=== PATIENT | male | born 1965 | race Caucasian/White ===

== ENCOUNTER 2020-02-24 08:03 | Outpatient (CLI) | payer OTHER, SELFPAY ==
--- NOTE | ~2020-02-24 | US_ITS ---
EXAMINATION: US art doppler w press LE BI DATE: 02/24/2020 08:44 INDICATION: Claudication. TECHNIQUE: Segmental pressures and plethysmographic and Doppler waveforms of the brachial and lower e xtremity arteries were obtained. COMPARISON: None. FINDINGS: Right and left brachial artery pressures of 151 mm Hg and 163 mm Hg, respectively, are concordant (no rmal difference <= 30 mmHg). The right high-thigh pressure index is 1.12 (normal > 1.2). The right ankle-brachial index (SAMUEL) is 1 .10 (normal >= 0.9-1.0). The right great toe-brachial index (TBI) is 1.24 (normal >= 0.65). Arterial Doppler waveforms are biphasic in common femoral artery, triphasic in superficial femoral artery, and biphasic in popliteal artery and at the ankle. The left high-thigh pressure index is 0.91. The left SAMUEL is 0.78. The left TBI is 0.73. The left lowe r extremity segmental pressure gradients are normal. Arterial Doppler waveforms are biphasic from com mon femoral artery to the ankle. IMPRESSION: 1. Mildly decreased left SAMUEL, consistent with left-sided arterial occlusive disease, most likely in t he iliofemoral distribution. Reviewed, dictated and finalized at location A. IMPRESSION: 1. Mildly decreased left SAMUEL, consistent with left-sided arterial occlusive dis ease, most likely in the iliofemoral distribution.
== END 2020-02-24 08:04 | disposition home or self-care (01) ==
LOC: ANHIMG 08:10
PROVIDERS: PCP Family Medicine; Visit Provider Family Medicine
DX: L97.501 Non-pressure chronic ulcer of other part of unspecified foot limited to breakdown of skin (principal); E08.621 Diabetes mellitus due to underlying condition with foot ulcer; I73.9 Peripheral vascular disease, unspecified
CPT/HCPCS: 93923

== ENCOUNTER 2023-01-24 13:41 | Inpatient (IN) | payer SELFPAY ==
--- NOTE | ~2023-01-24 | XR_ITS ---
EXAMINATION: XR toe 2nd RT min 2V INDICATION: Necrotic toe, second digit swelling TECHNIQUE: Four views of the right second toe are obtained. COMPARISON: None available FINDINGS: No fracture, dislocation, or subluxation. There is atrophy of the distal soft tissues of th e right second toe beyond the mid neck of the middle phalanx. No fracture is identified. There is mil d osteoarthritis of the interphalangeal joints. IMPRESSION: 1. Soft tissue atrophy of the distal second toe. Reviewed, dictated and finalized at location F.
--- NOTE | ~2023-01-24 | US_ITS ---
EXAMINATION: US arterial duplex LE RT DATE: 01/24/2023 19:41 INDICATION: Right second toe necrosis TECHNIQUE: Multiple grayscale and Doppler ultrasound images of the lower limb arteries were obtained. COMPARISON: None FINDINGS: On the right, peak systolic velocity is 100 cm/s in common femoral artery, 26 cm/s in the f emoral artery, 84 cm/s in superficial femoral artery, 59 cm/s in popliteal artery, 54 cm/s in the proximal anterior tibial artery and 29 cm/s in the distal anterior t ibial artery, 72 cm/s in posterior tibial artery, and 72 cm/s dorsalis pedis. IMPRESSION: 1. Increased velocity gradient between right superficial femoral artery and distal anterior tibial ar braulio, consistent with at least moderate stenosis. Reviewed, dictated and finalized at location F. IMPRESSION: 1. Increased velocity gradient between right superficial femoral artery and dis marcello anterior tibial artery, consistent with at least moderate stenosis.
[2023-01-24 13:49] VITALS: BP 194/98; PULSE 91; RESP 18; TEMP 36.6; O2SAT 100
[2023-01-24 16:24] VITALS: BP 202/98; PULSE 82; RESP 20; O2SAT 100
--- NOTE | 2023-01-24 16:43 | ED.LOWEXIN ---
HPI - Extremity Injury (Lower) General Chief Complaint: Extremity Injury, Lower Stated Complaint: wound on toe Time Seen by Provider: 01/24/23 16:19 History of Present Illness HPI Narrative: 57-year-old male presents to the emergency room this evening for a necrotic second toe on his right foot. He says that he accidentally cut his toe 2 weeks ago when he was trying to remove the callus from his foot. He tried to manage it on his own with dressings and finally went to see his child psychometrist today. The child psychometrist told him that his toe was gangrenous and he was going to need to come to the emergency room. The patient has not had any fever or chills. He does not have any sensation in the toe so he does not have any pain. Related Data Allergies Allergy/AdvReac Type Severity Reaction Status Date / Time No Known Drug Allergies Allergy Unknown Other Verified 01/24/23 16:24 Review of Systems Review of Systems: CONSTITUTIONAL: Denies fever, chills, or sweats. EYES: Denies visual changes, redness, or discharge. ENT: Denies rhinorrhea, congestion, sore throat, or otalgia. CARDIOVASCULAR: Denies chest pain, palpitations, or edema. RESPIRATORY: Denies cough or dyspnea. GASTROINTESTINAL: Denies abdominal pain, nausea, vomiting, or diarrhea. GENITOURINARY: Denies dysuria or hematuria. SKIN: Denies rash or itching. MUSCULOSKELETAL: As per HPI NEUROLOGIC: Denies headache, numbness, dizziness, or weakness. PSYCHIATRIC: Denies anxiety or depression. [facility] Past Medical History Medical History Benign hypertension Continuous tobacco abuse Diabetic neuropathy Elevated PSA History of CVA (cerebrovascular accident) Mixed hyperlipidemia Nicotine dependence, unspecified, uncomplicated Family History Family History Mother Family history of rheumatoid arthritis Father Carcinoma of colon Social History Social History Social History: Single Smoking packs per day: 1 Smoking cigarettes per day: 20.0 Years smoked: 36 Smoking pack-years: 36.00 Smoking status: Current every day smoker Tobacco type: cigarettes Second hand tobacco smoke exposure: Yes Alcohol intake: current Alcohol use details: once or twice a month Substance use: never Substance use type: does not use Living arrangements: alone Occupation/Education: occupation Gender identity (if verbalized by the patient): Male Sexual Orientation (if Verbalized by the Patient): Straight or Heterosexual Exam Narrative: GENERAL: Well-appearing, well-nourished, and in no acute distress. HEAD: Normocephalic, atraumatic. NECK: Supple. No adenopathy or masses. No carotid bruits or JVD CHEST: Clear to auscultation. No respiratory distress. No wheezes rales or rhonchi HEART: Regular rate and rhythm. No murmur heard. Normal peripheral pulses. ABDOMEN: Soft, nontender, nondistended, normal active bowel sounds. EXTREMITIES: Second toe of right foot has necrosis from the PIP joint to the tip. Proximal toe is swollen with erythema extending about 2 cm into the foot. No drainage. SKIN: Warm, dry, no rash. NEURO: No focal deficits. Alert and oriented x3. PSYCH: Normal mood and affect. Course Course Emergency Course: 1744 Discussed with podiatry, Dr. Schmitt. He agrees to see patient in consult. Would like arterial doppler done. 1814 Discussed with hospitalist PROJECT SCHEDULER, Pham, accepting patient for admission. Vital Signs Vital signs: Vital Signs Temperature 36.6 C 01/24/23 13:49 Pulse Rate 91 01/24/23 13:49 Respiratory Rate 18 01/24/23 13:49 Blood Pressure 194/98 H 01/24/23 13:49 Pulse Oximetry 100 01/24/23 13:49 Oxygen Delivery Room Air 01/24/23 13:49 Temperature 36.6 C 01/24/23 13:49 Pulse Rate 82 01/24/23 16:24 Respiratory Rate 20 01/24/23 16:24 Blood Pressure
[2023-01-24 17:24] LABS: Basophils Percent Auto 0.3 % (0.2-1.2); Eosinophils Absolute Auto 0.2 K/mm3 (0-0.3); Eosinophils Percent Auto 1.9 % (0-4.4); Hematocrit 42.9 % (42.0-52.0); Hemoglobin 13.7 g/dL (14.0-18.0); Immature Granulocyte Absolute 0.03 K/mm3 (0.00-0.031); Immature Granulocyte Percent A 0.3 % (0-0.5); Lymphocytes Absolute Auto 1.98 K/mm3 (0.9-3.2); Lymphocytes Percent Auto 21.6 % (18.3-44.2); Mean Corpuscular HGB Conc 31.9 g/dl (32-36); Mean Corpuscular Volume 84.6 fl (80-100); Mean Platelet Volume 10.8 fl (7.4-10.4); Monocytes Absolute Auto 0.7 K/mm3 (0.1-0.6); Monocytes Percent Auto 7.6 % (2.6-8.5); Neutrophils Absolute Auto 6.3 K/mm3 (1.3-6.7); Neutrophils Percent Auto 68.3 % (45.5-73.1); Platelet Count Result 299 k/mm3 (150-375); Red Blood Count 5.07 M/mm3 (4.6-6.20); Red Cell Distribution Width 12.7 % (11.5-14.5); White Blood Count 9.2 K/mm3 (4.5-10.0)
[2023-01-24 17:33] LABS: Lactic Acid Reflex 0.9 mmol/L (0.7-2.0)
[2023-01-24 17:38] LABS: Alanine Aminotransferase 16 U/L (6-50); Albumin Level 3.9 g/dL (3.5-5.1); Alkaline Phosphatase 88 U/L (38-126); Anion Gap 5 mmol/L (8-16); Aspartate Amino Transferase 18 U/L (17-59); Bilirubin,Total 0.7 mg/dL (0.2-1.3); Blood Urea Nitrogen 17 mg/dL (9-20); Calcium 8.7 mg/dL (8.4-10.2); Carbon Dioxide 31 mmol/L (22-30); Chloride 100 mmol/L (98-107); Estimated CRCL calculation 85 ml/min; Estimated Glomerular Filt Rate > 60; Glucose 76 mg/dL (65-110); Sodium 136 mmol/L (137-145)
[2023-01-24] MEDS: PIPERACILLN/TAZ 3.375GM/NS50ML 3.375 GM/50 ML BAG IVPB (18:15)
--- NOTE | 2023-01-24 18:51 | PC.NURSE ---
c/o pain where he had tooth extracted earlier today. GOMEZ Gabriel and hospitalist Pham made aware.
[2023-01-24 18:59] VITALS: BP 179/84; PULSE 79; RESP 16; O2SAT 98
[2023-01-24] MEDS: HYDROcodone/acetaminophen (*CRX) 7.5-325 MG TABLET 1 TAB PO (19:05)
[2023-01-24 21:38] LABS: Glucose Point of Care 181 mg/dl (65-105)
[2023-01-24 21:44] VITALS: BP 172/85; PULSE 72; RESP 16; TEMP 36.1; O2SAT 99
--- NOTE | 2023-01-24 23:27 | PM.IMHP ---
H&P: HPI History of Present Illness Date/Time: 01/24/23 23:27 Chief Complaint: Right 2nd toe gangrene Narrative: 57 y.o. male? with DMII? and BLE? neuropathy, h/o CVA- no residuals , HTN, HLD, tobacco abuse, PAD who was sent to the emergency room from his podiatry office due to right 2nd toe gangrene. Patient said that he had a callus on his right 2nd toe which she removed about a couple weeks ago. He said he would dress it about every 3 days or and it had minimal discharge only he followed up with his usual overhead crane inspector today and it was noted that he had gangrene on his right 2nd toe for which she was advised to go to the ER as he needed admission and amputation of the gangrene. Patient otherwise denies any fever, nausea or vomiting. He says he has good exercise tolerance and is able to walk long distances without getting any chest pain or shortness of breath. He says his diabetes is under control with his hemoglobin A1c around 6.6 only. He said he has had surgery about 2 years ago on his right foot which was uneventful. Patient says he was put on amoxicillin recently by his dentist after having his tooth pulled. Review of Systems Review of Systems: no fever or weight loss no vision changes, no eye discharge no throat pain, no hoarseness, no lymphadenopathy no chest pain, no palpitations no coughing, no wheezing no abdominal pain, no diarrhea, no nausea, no vomiting no dysuria, no vaginal discharge no leg swelling, no edema no suicidal or homicidal ideation PMFSH Past Medical History Medical History Benign hypertension Continuous tobacco abuse Diabetic neuropathy Elevated PSA History of CVA (cerebrovascular accident) Mixed hyperlipidemia Nicotine dependence, unspecified, uncomplicated Family History Family History Mother Family history of rheumatoid arthritis Father Carcinoma of colon Social History Social History Social History: Single Smoking packs per day: 1 Smoking cigarettes per day: 20.0 Years smoked: 39 Smoking pack-years: 39.00 Smoking status: Current every day smoker Tobacco type: cigarettes Second hand tobacco smoke exposure: Yes Alcohol intake: current Drinks per week: 1 Alcohol use details: once or twice a month Substance use: never Substance use type: does not use Lack of Transportation: No Lack of Food: Never True Current Housing: I Have Housing Concerned About Future Housing: No Difficulty Paying Gas/Electric Bills: No Difficulty Paying for Meds: No Currently Unemployed: No Education: Associate Degree Difficulty w/ Childcare or Family Care: No Living arrangements: alone Occupation/Education: occupation Gender identity (if verbalized by the patient): Male Sexual Orientation (if Verbalized by the Patient): Straight or Heterosexual Spiritual care concerns: No Meds Home Medications and Allergies Home Medications Medication Instructions Recorded Confirmed Type irbesartan 150 1 tablet PO DAILY #30 tabs 01/06/22 01/24/23 Rx mg-hydrochlorothiazide 12.5 mg tablet gabapentin 400 mg capsule 400 mg PO TID #360 caps 12/08/22 01/24/23 Rx metformin 1,000 mg tablet 1,000 mg PO BID #180 tabs 12/08/22 01/24/23 Rx glimepiride 2 mg tablet 2 mg PO DAILY 01/24/23 01/24/23 History Allergies Allergy/AdvReac Type Severity Reaction Status Date / Time No Known Drug Allergies Allergy Unknown Other Verified 01/24/23 16:24 Vital Signs Vital Signs - 24 hr 01/24/23 13:49 01/24/23 16:24 01/24/23 18:59 Temperature 98 F Pulse Rate 91 82 79 Respiratory Rate 18 20 16 Blood Pressure 194/98 H 202/98 H 179/84 H Pulse Oximetry 100 100 98 Oxygen Delivery Room Air 01/24/23 21:44 Temperature 97 F L Pulse Rate 72 Respiratory Rate 16 Blood Pressure 172/85 H Pulse Oxime
[2023-01-25] MEDS: PIPERACILLN/TAZ 3.375GM/NS50ML 3.375 GM/50 ML BAG IVPB ×4 (00:16→17:06)
[2023-01-25 00:49] LABS: Anion Gap 5 mmol/L (8-16); Blood Urea Nitrogen 15 mg/dL (9-20); Calcium 8.3 mg/dL (8.4-10.2); Carbon Dioxide 31 mmol/L (22-30); Chloride 99 mmol/L (98-107); Estimated CRCL calculation 85 ml/min; Estimated Glomerular Filt Rate > 60; Glucose 105 mg/dL (65-110); Potassium 3.5 mmol/L (3.4-5.0); Sodium 135 mmol/L (137-145)
[2023-01-25 05:58] VITALS: BP 162/65; PULSE 84; RESP 16; TEMP 36.4; O2SAT 98
[2023-01-25 06:29] LABS: Estimated CRCL calculation 85 ml/min; Estimated Glomerular Filt Rate > 60
[2023-01-25 08:40] LABS: Glucose Point of Care 114 mg/dl (65-105)
[2023-01-25 09:15] VITALS: BP 128/63; PULSE 86; RESP 14; O2SAT 96
[2023-01-25] MEDS: GABAPENTIN 400 MG CAPSULE PO ×2 (11:50→17:06)
[2023-01-25] MEDS: IRBESARTAN 150 MG TABLET PO (11:50)
[2023-01-25] MEDS: hydroCHLOROthiazide 12.5 MG CAPSULE PO (11:50)
--- NOTE | 2023-01-25 11:54 | PM.IMHP ---
H&P: HPI History of Present Illness Date/Time: 01/25/23 11:54 Chief Complaint: Patient presented to the ED January 24, 2023 with a black toe to the second toe of the right foot. He is a chronic smoker and diabetic with neuropathy. He states that he does not feel downt to his feet, currently having no pain. He denies intermittent claudication. He denies constitutional symptoms. He states that he cut himself after trimming a callus and his toe started turning black within a couple days. He relates he is established with Dr. Grant his payroll auditor, he was told to go to the ER for management. [facility] Past Medical History Medical History Benign hypertension Continuous tobacco abuse Diabetic neuropathy Elevated PSA History of CVA (cerebrovascular accident) Mixed hyperlipidemia Nicotine dependence, unspecified, uncomplicated Family History Family History Mother Family history of rheumatoid arthritis Father Carcinoma of colon Social History Social History Social History: Single Smoking packs per day: 1 Smoking cigarettes per day: 20.0 Years smoked: 39 Smoking pack-years: 39.00 Smoking status: Current every day smoker Tobacco type: cigarettes Second hand tobacco smoke exposure: Yes Alcohol intake: current Drinks per week: 1 Alcohol use details: once or twice a month Substance use: never Substance use type: does not use Lack of Transportation: No Lack of Food: Never True Current Housing: I Have Housing Concerned About Future Housing: No Difficulty Paying Gas/Electric Bills: No Difficulty Paying for Meds: No Currently Unemployed: No Education: Associate Degree Difficulty w/ Childcare or Family Care: No Living arrangements: alone Occupation/Education: occupation Gender identity (if verbalized by the patient): Male Sexual Orientation (if Verbalized by the Patient): Straight or Heterosexual Spiritual care concerns: No Meds Home Medications and Allergies Home Medications Medication Instructions Recorded Confirmed Type irbesartan 150 1 tablet PO DAILY #30 tabs 01/06/22 01/24/23 Rx mg-hydrochlorothiazide 12.5 mg tablet gabapentin 400 mg capsule 400 mg PO TID #360 caps 12/08/22 01/24/23 Rx metformin 1,000 mg tablet 1,000 mg PO BID #180 tabs 12/08/22 01/24/23 Rx glimepiride 2 mg tablet 2 mg PO DAILY 01/24/23 01/24/23 History Allergies Allergy/AdvReac Type Severity Reaction Status Date / Time No Known Drug Allergies Allergy Unknown Other Verified 01/24/23 16:24 Vital Signs Vital Signs - 24 hr 01/24/23 13:49 01/24/23 16:24 01/24/23 18:59 Temperature 36.6 C Pulse Rate 91 82 79 Respiratory Rate 18 20 16 Blood Pressure 194/98 H 202/98 H 179/84 H Pulse Oximetry 100 100 98 Oxygen Delivery Room Air 01/24/23 21:44 01/25/23 05:58 01/25/23 09:15 Temperature 36.1 C L 36.4 C Pulse Rate 72 84 86 Respiratory Rate 16 16 14 Blood Pressure 172/85 H 162/65 H 128/63 Pulse Oximetry 99 98 96 Oxygen Delivery Exam Extrem: Other: Dry gangrenous right second digit extending just distal to the proximal interphalangeal joint. Some erythema and xerotic skin along the base of the digit. I am able to feel pedal pulses easily. H&P: Results Labs Labs: Short CBC 01/24/23 Range/Units 17:18 WBC 9.2 (4.5-10.0) K/mm3 Hgb 13.7 L (14.0-18.0) g/dL Hct 42.9 (42.0-52.0) % Plt Count 299 (150-375) k/mm3 BMP 01/24/23 01/25/23 01/25/23 17:18 00:10 05:49 Sodium 136 L 135 L Potassium 4.0 3.5 Chloride 100 99 Carbon Dioxide 31 H 31 H BUN 17 15 Creatinine 0.90 0.90 0.90 Glucose 76 105 Calcium 8.7 8.3 L Liver Function 01/24/23 Range/Units 17:18 Total Bilirubin 0.7 (0.2-1.3) mg/dL AST 18 (17-59) U/L ALT 16 (6-50) U/L
[2023-01-25 11:55] LABS: Glucose Point of Care 95 mg/dl (65-105)
[2023-01-25 12:00] VITALS: BP 151/72; PULSE 81; RESP 18; TEMP 36.2; O2SAT 98
[2023-01-25 14:15] VITALS: BP 157/72; PULSE 79; RESP 16; TEMP 36.3; O2SAT 98
--- NOTE | 2023-01-25 15:27 | PC.NURSE ---
On 01/25/23, the student, Gabriela Paula, provided care and completed [facility] documentation on this patient. I have reviewed the student's documentation and agree with the findings.
[2023-01-25 16:58] LABS: Glucose Point of Care 164 mg/dl (65-105)
--- NOTE | 2023-01-25 17:51 | PM.TDS ---
Transfer Discharge Sum: Prov Provider Date of admission: 01/25/23 10:44 Primary care physician: Mag Gautam MD Admitting clinician: Patsy Thomas DO Consults: 01/24/23 Consult to Physician Routine Comment: Spoke to dr @[phone] (,) Consulting Provider: Jose Cosme call center specialist/MD group to consult: repairer finished metal Reason for consultation: right toe gangrene Has provider been notified: Yes DS: Admitting Diagnosis Discharge Date 01/25/2023 Admitting Diagnosis Right 2nd toe gangrene DS: Discharge Diagnosis Discharge Diagnosis (1) Cellulitis of toe, right: Code(s): L03.031 - Cellulitis of right toe Status: Acute Assessment and Plan: Patient with history of diabetes and gangrene of his right 2nd toe. Was seen in the podiatry clinic today and advice to go to the ER for further management and amputation of gangrene. Patient started empirically on Zosyn and vancomycin, will continue. Pharmacy to dose. Await further Podiatry recommendations. (2) Necrosis of toe: Code(s): I96 - Gangrene, not elsewhere classified Status: Acute Assessment and Plan: Patient with gangrene of his right 2nd toe. There is no active discharge noted. Only minimal swelling around the toe. Patient already on empiric antibiotics. Monitor clinically. (3) Benign hypertension: Code(s): I10 - Essential (primary) hypertension Status: Acute Assessment and Plan: Patient with history of hypertension, slightly elevated blood pressure, given clonidine in ER. Will continue with his usual home medication irbesartan and hydrochlorothiazide. (4) Diabetic ulcer of toe: Code(s): E11.621 - Type 2 diabetes mellitus with foot ulcer; L97.509 - Non-pressure chronic ulcer of other part of unspecified foot with unspecified severity Status: Acute Assessment and Plan: Patient with history of diabetes. He says his last hemoglobin A1c was acceptable at 6.6. We will continue with his glimepiride as at home. Was taking metformin at home, will hold while patient in the hospital. Monitor Accu-Cheks and implement hypoglycemia protocol as needed. Transfer Discharge Sum: Med Medications Active and Home Medications: Home Medications irbesartan 150 mg-hydrochlorothiazide 12.5 mg tablet 1 tablet PO DAILY #30 tabs 01/06/22 [Rx Confirmed 01/24/23] gabapentin 400 mg capsule 400 mg PO TID #360 caps 12/08/22 [Rx Confirmed 01/24/23] metformin 1,000 mg tablet 1,000 mg PO BID #180 tabs 12/08/22 [Rx Confirmed 01/24/23] glimepiride 2 mg tablet 2 mg PO DAILY 01/24/23 [History Confirmed 01/24/23] Active Medications Dextrose (Dextrose 50% 25 Gm/50 Ml Syringe) 12.5 gm IV PUSH PRN PRN; Protocol PRN Reason: Hypoglycemia Dextrose (Dextrose 50% 25 Gm/50 Ml Syringe) 12.5 gm IV PUSH PRN PRN; Protocol PRN Reason: Hypoglycemia Gabapentin (Gabapentin 400 Mg Capsule) 400 mg PO TID [facility] Last Admin: 01/25/23 17:06 Dose: 400 mg Glimepiride (Glimepiride 2 Mg Tablet) 2 mg PO DAILY [facility] Last Admin: 01/25/23 10:34 Dose: Not Given Glucagon (Glucagon For Inj 1 Mg Vial) 1 mg IM PRN PRN; Protocol PRN Reason: Hypoglycemia Glucagon (Glucagon For Inj 1 Mg Vial) 1 mg IM PRN PRN; Protocol PRN Reason: Hypoglycemia Glucose (Glucose Oral Gel 15 Gm Of Glucse In 37.5 Gm Tube) 15 gm PO PRN PRN; Protocol PRN Reason: Hypoglycemia Glucose (Glucose Oral Gel 15 Gm Of Glucse In 37.5 Gm Tube) 15 gm PO PRN PRN; Protocol PRN Reason: Hypoglycemia Hydrochlorothiazide (Hydrochlorothiazide 12.5 Mg Capsule) 12.5 mg PO QAM [facility] Last Admin: 01/25/23 11:50 Dose: 12.5 mg Piperacillin/Tazobactam/Dextrose (Zosyn 3.375 Gm/Ns 50 Ml) 3.375 gm in 50 mls @ 100 mls/hr IVPB Q6H [facility] Last Infusion: 01/25/23 17:36 Dose: Infused Vancomycin HCl (Vancomycin 1,500 Mg/D5w 500 Ml) 1,500 mg in 500 mls @ 250 mls/hr IVPB Q12H [facility] Last Infusion: 01/25/23 08:27 Dose: Infused Dextrose (Dextrose 5% 1,000 Ml) 1,000 mls @ 100 mls/
[2023-01-25 20:00] VITALS: PULSE 79; RESP 16; O2SAT 98
[2023-01-25 21:05] LABS: Glucose Point of Care 166 mg/dl (65-105)
== END 2023-01-26 01:45 | disposition short-term general hospital (02) | DRG 197 ==
LOC: ANHED 18:28 → ANH3MEDSUR 21:02
PROVIDERS: Internal Medicine; Admitting Provider Student in an Organized Health Care Education/Training Program; Emergency Provider Nurse Practitioner Family; PCP Family Medicine; Visit Provider Family Medicine
DX: E11.52 Type 2 diabetes mellitus with diabetic peripheral angiopathy with gangrene (principal); I96 Gangrene, not elsewhere classified; E11.40 Type 2 diabetes mellitus with diabetic neuropathy, unspecified; E11.621 Type 2 diabetes mellitus with foot ulcer; L03.031 Cellulitis of right toe; I10 Essential (primary) hypertension; E78.2 Mixed hyperlipidemia; F17.210 Nicotine dependence, cigarettes, uncomplicated; L97.519 Non-pressure chronic ulcer of other part of right foot with unspecified severity; Z79.84 Long term (current) use of oral hypoglycemic drugs; Z79.899 Other long term (current) drug therapy
CPT/HCPCS: 36415; 73660; 80048; 80053; 82565; 82948; 83605; 85025; 87040; 93926; 96365; 96366; 96367; 99285; A9270; G0378; G0379; J2543; J3370

== ENCOUNTER 2025-02-10 12:44 | Emergency (ER) | payer SELFPAY ==
[2025-02-10] VITALS (13 sets, daily range): BP systolic 152–197; BP diastolic 76–102; PULSE 77–89; RESP 14–22; TEMP 36.6; O2SAT 96–100
--- NOTE | ~2025-02-10 | CT_ITS ---
CTA brain carotid Ordering provider: Judit Levy MD History: . cva? . Comparison: July 31, 2019 Technique: CT angiogram head and neck was performed following timed intravenous injection of contrast . Thin slice axial images and reformatted coronal images were obtained. Three dimensional reformatted images of the brain were also obtained using a [employer] workstation. Radiation reduction technique ut ilized.The dose-length product was 1756.30 mGy-cm. 100 mL Omnipaque 350 was given IV. FINDINGS: HEAD: --ANTERIOR AND MIDDLE CEREBRAL ARTERIES AND BRANCHES: Normal caliber and contour. --INTERNAL CAROTID ARTERIES: Mild atheromatous disease but no significant stenosis. No occlusion. --BASILAR ARTERY AND BRANCHES: Normal caliber and contour. No atheromatous disease. --POSTERIOR CEREBRAL ARTERIES: Normal caliber and contour --POSTERIOR COMMUNICATING ARTERIES: Not visualized which is probably related to congenital absence or small size. --ANEURYSM: None visualized. --BRAIN: Deep white matter ischemic changes with mild brain atrophy otherwise, old infarct in the rig ht insula is noted. Old infarct in the miryam is also noted. .--BONES AND SUPERFICIAL SOFT TISSUES: Normal. --PARANASAL SINUSES AND MASTOIDS: Normal. NECK: --RIGHT CERVICAL CAROTID SYSTEM: Mild atheromatous disease of the carotid bulb proximal internal preciado tid artery without significant stenosis. Percent stenosis per NASCET criteria is 60%. No carotid dis section. Otherwise, no significant atheromatous disease or stenosis of the cervical carotid system. --LEFT CERVICAL CAROTID SYSTEM: Thickening of the wall of the carotid bulb and proximal internal preciado tid artery without significant stenosis which may be atherosclerotic or due to vasculitis.. Percent s tenosis per NASCET criteria is 10%. No carotid dissection. Otherwise, no significant atheromatous disease or stenosis of the cervical carotid system. --VERTEBRAL ARTERIES: Normal caliber and contour. --VISUALIZED AORTIC ARCH AND BRANCHING VESSELS: Mild atheromatous disease but no significant stenosis . --SOFT TISSUES: Normal. --CERVICAL SPINE: Age appropriate degenerative changes. IMPRESSION: 1. Normal CTA head 2. CTA neck. Percent stenosis per NASCET criteria is 60% on the right and 10% on the left Reviewed, dictated and finalized at location A.
--- NOTE | ~2025-02-10 | XR_ITS ---
CHEST RADIOGRAPH CLINICAL HISTORY: cva? . COMPARISON: 07/31/2019 TECHNIQUE: Single portable view of the chest. FINDINGS The cardiomediastinal silhouette is unremarkable. The lungs are clear. Visualized osseous structures and soft tissues are unremarkable. IMPRESSION: No focal infiltrate or effusion. Reviewed, dictated and finalized at location A.
--- NOTE | 2025-02-10 14:20 | ECG_ITS ---
Test Date: 2025-02-10 14:40:32 Measurements Intervals [place] Rate: 88 P: 51 OR: 110 QRS: -27 QRSD: 110 T: 55 QT: 350 QTc: 424 Interpretive Statements SINUS RHYTHM WITH SHORT OR INTERVAL WITH OCCASIONAL SUPRAVENTRICULAR PREMATURE COMPLEXES INCOMPLETE LEFT BUNDLE BRANCH BLOCK EARLY PRECORDIAL R/S TRANSITION CONSIDER INFERIOR INFARCT, AGE INDETERMINATE BASELINE ARTIFACT- II, III, AVR, AVF, V1-V3 ABNORMAL ECG No previous ECG available for comparison Electronically Signed On 02-10-2025 15:20:58 CDT by Sam Calderón D.O.
[2025-02-10 14:52] LABS: Basophils Percent Auto 0.4 % (0.2-1.2); Eosinophils Absolute Auto 0.1 K/mm3 (0-0.3); Eosinophils Percent Auto 1.3 % (0-4.4); Hematocrit 46.7 % (42.0-52.0); Hemoglobin 15.1 g/dL (14.0-18.0); Immature Granulocyte Absolute 0.04 K/mm3 (0.00-0.031); Immature Granulocyte Percent A 0.4 % (0-0.5); Lymphocytes Absolute Auto 1.53 K/mm3 (0.9-3.2); Lymphocytes Percent Auto 16.4 % (18.3-44.2); Mean Corpuscular HGB Conc 32.3 g/dl (32-36); Mean Corpuscular Hemoglobin 26.6 pg (26-34); Mean Corpuscular Volume 82.4 fl (80-100); Mean Platelet Volume 10.2 fl (7.4-10.4); Monocytes Absolute Auto 0.6 K/mm3 (0.1-0.6); Monocytes Percent Auto 6.8 % (2.6-8.5); Neutrophils Percent Auto 74.7 % (45.5-73.1); Platelet Count Result 195 k/mm3 (150-375); Red Blood Count 5.67 M/mm3 (4.6-6.20); Red Cell Distribution Width 13.3 % (11.5-14.5); White Blood Count 9.4 K/mm3 (4.5-10.0)
[2025-02-10 15:03] LABS: Alanine Aminotransferase 15 U/L (6-50); Albumin Level 4.1 g/dL (3.5-5.1); Alkaline Phosphatase 96 U/L (38-126); Anion Gap 8 mmol/L (4-12); Aspartate Amino Transferase 19 U/L (17-59); Bilirubin,Total 0.7 mg/dL (0.2-1.3); Blood Urea Nitrogen 14 mg/dL (9-20); Calcium 9.1 mg/dL (8.4-10.2); Carbon Dioxide 28 mmol/L (22-30); Chloride 100 mmol/L (98-107); Estimated CRCL calculation 70 ml/min; Estimated Glomerular Filt Rate > 60; Glucose 83 mg/dL (65-110); Potassium 3.7 mmol/L (3.4-5.0); Sodium 136 mmol/L (137-145)
[2025-02-10 15:08] LABS: Estimated CRCL calculation 67 ml/min; Estimated Glomerular Filt Rate > 60
[2025-02-10 15:11] LABS: Prothrombin Time 13.4 Seconds (11.1-14.7)
[2025-02-10 15:12] LABS: Partial Thromboplastin Time 29.3 Seconds (22.3-36.8)
[2025-02-10 15:15] LABS: Troponin I 0.015 ng/mL (0.000-0.034)
--- NOTE | 2025-02-10 16:01 | ED.NEUROSD ---
HPI - Neuro Symptoms/Deficit General Chief Complaint: Suspected CVA <Odell Jerry MD - Last Filed: 02/10/25 19:12> Stated Complaint: cva? <Odell Jerry MD - Last Filed: 02/10/25 19:12> Time Seen by Provider: 02/10/25 14:58 <Odell Jerry MD - Last Filed: 02/10/25 19:12> History of Present Illness HPI Narrative: This is a 59-year-old male presenting for stroke symptoms. Last known normal was 9:00 p.m. last night. At last night patient fell at home and then his roommate put him to bed. When he woke up this morning he is having slurred speech and facial droop. Patient is denying any physical complaints at this time. <Odell Jerry MD - Last Filed: 02/10/25 19:12> Related Data Home Medications: Home Medications ?Medication ?Instructions ?Recorded ?Confirmed ?Last Taken ?Type glimepiride 2 mg tablet 2 mg PO DAILY 01/24/23 02/10/25 01/23/23 08:00 History aspirin 81 mg tablet,delayed 81 mg PO DAILY 09/09/24 02/10/25 Unknown History release (Adult Low Dose Aspirin) <Odell Jerry MD - Last Filed: 02/10/25 19:12> Allergies/Adverse Reactions: Allergies Allergy/AdvReac Type Severity Reaction Status Date / Time No Known Drug Allergies Allergy Unknown Other Verified 02/10/25 17:25 <Odell Jerry MD - Last Filed: 02/10/25 19:12> [facility] Past Medical History Medical History: Medical History Nicotine dependence, unspecified, uncomplicated Elevated PSA History of CVA (cerebrovascular accident) Continuous tobacco abuse Mixed hyperlipidemia Benign hypertension Diabetic neuropathy <Odell Jerry MD - Last Filed: 02/10/25 19:12> Family History Family History: Family History Mother Family history of rheumatoid arthritis Father Carcinoma of colon <Odell Jerry MD - Last Filed: 02/10/25 19:12> Social History Social History: Social History Social History: Single Smoking packs per day: 1 Smoking cigarettes per day: 20.0 Years smoked: 39 Smoking pack-years: 39.00 Smoking status: Current every day smoker Tobacco type: cigarettes Second hand tobacco smoke exposure: Yes Alcohol intake: current Drinks per week: 1 Alcohol use details: once or twice a month Substance use: never Substance use type: does not use Lack of Transportation: No Lack of Food: Never True Current Housing: I Have Housing Concerned About Future Housing: No Difficulty Paying Gas/Electric Bills: No Difficulty Paying for Meds: No Currently Unemployed: No Education: Associate Degree Difficulty w/ Childcare or Family Care: No Living arrangements: alone Occupation/Education: occupation Gender identity (if verbalized by the patient): Male Sexual Orientation (if Verbalized by the Patient): Straight or Heterosexual Spiritual care concerns: No <Odell Jerry MD - Last Filed: 02/10/25 19:12> Exam Narrative: APPEARANCE: No apparent distress. Head: atraumatic. EYES: EOMI, JIM NOSE: Atraumatic NECK: Trachea midline RESPIRATORY: No increased rate of breathing CARDIOVASCULAR: RRR, ABDOMINAL: Non-distended MUSCULOSKELETAl: No obvious deformities NEURO: Alert. Weakness drift in the right arm. Right-sided facial droop. Weakness in the right leg. NIH below. SKIN:: Warm, dry. Normal color PSYCHIATRIC: Normal affect NIH Stroke Scale/Score (NIHSS) from [email or web address] on 02/10/2025 All calculations should be rechecked by clinician prior to use RESULT SUMMARY: 7 points NIH Stroke Scale INPUTS: 1A: Level of consciousness ?> 0 = Alert; keenly responsive 1B: Ask month and age ?> 0 = Both questions right 1C: 'Blink eyes' & 'squeeze hands' ?> 0 = Performs both tasks 2: Horizontal extraocular movements ?> 0 = Normal 3: Visual woods ?> 0 = No visual loss 4: Facial palsy ?> 2 = Partial paralysis (lower face) 5A: Left arm motor drift ?> 0 = No drift for 10 seconds 5B: Right arm motor drift ?> 1 = Drift, but doesn't hit bed 6A: Left leg motor drift ?> 0 = No drift for 5 seconds 6B: Right leg motor drift ?> 2 = Some effort against gravity 7: Limb Ataxia ?> 1 = Ataxia in 1 Limb 8: Sensation ?> 0 = Normal; no sensory loss 9: Language/aphasia ?> 0 = Normal; no aphasia 10: Dysarthria ?> 1 = Mild-moderate dysarthria: slurring but can be understood 11: Extinction/inattention ?> 0 = No abnormality <Odell Jerry MD - Last Filed: 02/10/25 19:12> Course Course Emergency Course: Patient signed out to me after having been accepted at [facility] and pending a bed. Overnight, he was given a bed. Patient required nothing overnight, no acute events. EMS transportation will be arranged but likely not available until mid morning. <Christiana Martinez MD - Last Filed: 02/11/25 07:12> Vital Signs Vital signs: Vital Signs Temperature 97.8 F 02/10/25 12:44 Pulse Rate 83 02/10/25 12:44 Respiratory Rate 19 02/10/25 12:44 Blood Pressure 177/82 H 02/10/25 12:44 Pulse Oximetry 96 02/10/25 12:44 Oxygen Delivery Room Air 02/10/25 12:44 Temperature 97.8 F 02/10/25 12:44 Pulse Rate 104 H 02/11/25 06:16 Respiratory Rate 20 02/11/25 06:16 Blood Pressure 187/104 H 02/11/25 06:16 Pulse Oximetry 97 02/11/25 06:16 Oxygen Delivery Room Air 02/10/25 12:44 <Odell Jerry MD - Last Filed: 02/10/25 19:12> Vital Signs Temperature 97.8 F 02/10/25 12:44 Pulse Rate 83 02/10/25 12:44 Respiratory Rate 19 02/10/25 12:44 Blood Pressure 177/82 H 02/10/25 12:44 Pulse Oximetry 96 02/10/25 12:44 Oxygen Delivery Room Air 02/10/25 12:44 Temperature 97.8 F 02/10/25 12:44 Pulse Rate 104 H 02/11/25 06:16 Respiratory Rate 20 02/11/25 06:16 Blood Pressure 187/104 H 02/11/25 06:16 Pulse Oximetry 97 02/11/25 06:16 Oxygen Delivery Room Air 02/10/25 12:44 <Chrisitana Martinez MD - Last Filed: 02/11/25 07:12> MDM - Neuro Symptoms/Deficit MDM Narrative Medical decision making narrative: -Course: 66-year-old male presenting with L MCA stroke symptoms. NIH 7. Last known normal 9:00 p.m. yesterday. Patient is not a tPA candidate. CT shows 60% carotid occlusion on the right side which does not correspond with symptoms and 10% on the left side. Unfortunately we do not have neurology on for the next 2 days. Case was discussed with Dr. Tabor (neurology @[facility]). Patient was accepted under Dr. JHA. Patient will be transferred to [facility] for Neurology eval. -DDX includes but is not limited to: CVA, TIA, carotid dissection <Odell Jerry MD - Last Filed: 02/10/25 19:12> Lab Data Result diagrams: 02/10/25 14:43 02/10/25 15:06 <Odell Jerry MD - Last Filed: 02/10/25 19:12> Labs: Lab Results 02/10/25 02/10/25 Range/Units 14:43 15:06 WBC 9.4 (4.5-10.0) K/mm3 RBC 5.67 (4.6-6.20) M/mm3 Hgb 15.1 (14.0-18.0) g/dL Hct 46.7 (42.0-52.0) % MCV 82.4 (80-100) fl MCH 26.6 (26-34) pg MCHC 32.3 (32-36) g/dl RDW 13.3 (11.5-14.5) % Plt Count 195 (150-375) k/mm3 MPV 10.2 (7.4-10.4) fl Immature Gran % (Auto) 0.4 (0-0.5) % Neut % (Auto) 74.7 H (45.5-73.1) % Lymph % (Auto) 16.4 L (18.3-44.2) % Bradford % (Auto) 6.8 (2.6-8.5) % Eos % (Auto) 1.3 (0-4.4) % Baso % (Auto) 0.4 (0.2-1.2) % Lymph # (Auto) 1.53 (0.9-3.2) K/mm3 Bradford # (Auto) 0.6 (0.1-0.6) K/mm3 Eos # (Auto) 0.1 (0-0.3) K/mm3 Baso # (Auto) 0.0 (0.0-0.1) K/mm3 Abs Immat Gran (auto) 0.04 H (0.00-0.031) K/mm3 Absolute Neuts (auto) 7.0 H (1.3-6.7) K/mm3 Absolute Nucleated RBC 0.000 (0.0-0.012) K/mm3 Nucleated RBC % 0.0 (0.0-0.2) % PT 13.4 (11.1-14.7) Seconds INR 1.0 APTT 29.3 (22.3-36.8) Seconds Sodium 136 L (137-145) mmol/L Potassium 3.7 (3.4-5.0) mmol/L Chloride 100 (98-107) mmol/L Carbon Dioxide 28 (22-30) mmol/L Anion Gap 8 (4-12) mmol/L BUN 14 (9-20) mg/dL Creatinine 1.04 1.10 (0.7-1.3) mg/dL Estim Creat Clear Calc 70 67 ml/min Estimated GFR > 60 > 60 (59 - ) Glucose 83 (65-110) mg/dL Calcium 9.1 (8.4-10.2) mg/dL Total Bilirubin 0.7 (0.2-1.3) mg/dL AST 19 (17-59) U/L ALT 15 (6-50) U/L Alkaline Phosphatase 96 (38-126) U/L Troponin I 0.015 (0.000-0.034) ng/mL Total Protein 7.0 (6.3-8.2) g/dL Albumin 4.1 (3.5-5.1) g/dL <Odell Jerry MD - Last Filed: 02/10/25 19:12> Lab Results 02/10/25 02/10/25 Range/Units 14:43 15:06 WBC 9.4 (4.5-10.0) K/mm3 RBC 5.67 (4.6-6.20) M/mm3 Hgb 15.1 (14.0-18.0) g/dL Hct 46.7 (42.0-52.0) % MCV 82.4 (80-100) fl MCH 26.6 (26-34) pg MCHC 32.3 (32-36) g/dl RDW 13.3 (11.5-14.5) % Plt Count 195 (150-375) k/mm3 MPV 10.2 (7.4-10.4) fl Immature Gran % (Auto) 0.4 (0-0.5) % Neut % (Auto) 74.7 H (45.5-73.1) % Lymph % (Auto) 16.4 L (18.3-44.2) % Bradford % (Auto) 6.8 (2.6-8.5) % Eos % (Auto) 1.3 (0-4.4) % Baso % (Auto) 0.4 (0.2-1.2) % Lymph # (Auto) 1.53 (0.9-3.2) K/mm3 Bradford # (Auto) 0.6 (0.1-0.6) K/mm3 Eos # (Auto) 0.1 (0-0.3) K/mm3 Baso # (Auto) 0.0 (0.0-0.1) K/mm3 Abs Immat Gran (auto) 0.04 H (0.00-0.031) K/mm3 Absolute Neuts (auto) 7.0 H (1.3-6.7) K/mm3 Absolute Nucleated RBC 0.000 (0.0-0.012) K/mm3 Nucleated RBC % 0.0 (0.0-0.2) % PT 13.4 (11.1-14.7) Seconds INR 1.0 APTT 29.3 (22.3-36.8) Seconds Sodium 136 L (137-145) mmol/L Potassium 3.7 (3.4-5.0) mmol/L Chloride 100 (98-107) mmol/L Carbon Dioxide 28 (22-30) mmol/L Anion Gap 8 (4-12) mmol/L BUN 14 (9-20) mg/dL Creatinine 1.04 1.10 (0.7-1.3) mg/dL Estim Creat Clear Calc 70 67 ml/min Estimated GFR > 60 > 60 (59 - ) Glucose 83 (65-110) mg/dL Calcium 9.1 (8.4-10.2) mg/dL Total Bilirubin 0.7 (0.2-1.3) mg/dL AST 19 (17-59) U/L ALT 15 (6-50) U/L Alkaline Phosphatase 96 (38-126) U/L Troponin I 0.015 (0.000-0.034) ng/mL Total Protein 7.0 (6.3-8.2) g/dL Albumin 4.1 (3.5-5.1) g/dL <Christiana Martinez MD - Last Filed: 02/11/25 07:12> Discharge Plan Discharge Clinical Impression: Acute CVA (cerebrovascular accident) (Ruled Out): Claudication <Odell Jerry MD - Last Filed: 02/10/25 19:12> Patient Disposition: Acute Care Hospital <Odell Jerry MD - Last Filed: 02/10/25 19:12> Condition: Stable <Odell Jerry MD - Last Filed: 02/10/25 19:12> Patient Language: Kinyarwanda <Odell Jerry MD - Last Filed: 02/10/25 19:12> Prescriptions: No Action sertraline 50 mg tablet 50 mg PO DAILY Qty: 30 1RF gabapentin 400 mg capsule 400 mg PO TID Qty: 360 0RF Rx Instructions: PATIENT STATES TAKES 2 CAPSULES ONCE A DAY irbesartan-hydrochlorothiazide 150-12.5 mg tablet 1 tablet PO DAILY Qty: 30 3RF ondansetron 4 mg tablet,disintegrating 4 mg PO Q8H PRN (Reason: nausea and vomiting) Qty: 14 2RF glimepiride 2 mg tablet 2 mg PO DAILY Rx Instructions: TAKE 1 TABLET BY MOUTH EVERY MORNING aspirin [Adult Low Dose Aspirin] 81 mg tablet,delayed release (DR/EC) 81 mg PO DAILY rosuvastatin 5 mg tablet 5 mg PO DAILY Qty: 30 2RF metformin 1,000 mg tablet 1,000 mg PO BID Qty: 180 0RF Patient Comments: PATIENT STATES ORDERED bid BUT TAKES ONLY ONCE D/T GASTRIC SIDE EFFECTS <Odell Jerry MD - Last Filed: 02/10/25 19:12> Follow-up/Referrals: Albaro Turner MD [Primary Care Provider] - <Odell Jerry MD - Last Filed: 02/10/25 19:12>
[2025-02-10] MEDS: ASPIRIN 81 MG CHEWABLE TABLET 324 MG PO (17:22)
[2025-02-11] VITALS (17 sets, daily range): BP systolic 145–187; BP diastolic 80–104; PULSE 91–104; RESP 14–30; TEMP 36.4–36.5; O2SAT 96–98
--- NOTE | 2025-02-11 05:07 | PC.NURSE ---
0451: RN received news from [facility] transfer center that pt has a bed at [facility]. RN gave report to Lakeshia Boo at [phone]. Earliest ETA is 09:00 this morning.
--- NOTE | 2025-02-11 06:58 | PC.NURSE ---
Pt daughter was called at this time to give her an update on pt. She is aware pt is being transferred to [facility] at 09:00 this morning.
== END 2025-02-11 09:32 | disposition short-term general hospital (02) ==
PROVIDERS: Emergency Medicine; Emergency Provider Emergency Medicine; PCP Family Medicine
DX: I63.9 Cerebral infarction, unspecified (principal); R29.707 NIHSS score 7; I10 Essential (primary) hypertension; E78.2 Mixed hyperlipidemia; E11.40 Type 2 diabetes mellitus with diabetic neuropathy, unspecified; F17.210 Nicotine dependence, cigarettes, uncomplicated; Z79.899 Other long term (current) drug therapy; Z79.82 Long term (current) use of aspirin; Z79.84 Long term (current) use of oral hypoglycemic drugs; I65.23 Occlusion and stenosis of bilateral carotid arteries; I49.1 Atrial premature depolarization; I44.7 Left bundle-branch block, unspecified; R94.31 Abnormal electrocardiogram [ECG] [EKG]
CPT/HCPCS: 36415; 70496; 70498; 71045; 80053; 84484; 85025; 85610; 85730; 93005; 99284; 99285; A9270; Q9967